=== PATIENT | male | born 1945 | race Caucasian/White ===

== ENCOUNTER → 2016-06-08 | Outpatient (CLI) | payer MEDICARE, BC ==
[~2016-06-08] MED LIST: AMOX TR-K CLV1 EAC4 PO; ASPIRIN325 MG PO; BENTYL10 MG PO; Ceftin PO; FLOMAX0.4 MG PO; GLUCOPHAGE1000 MG PO; GLUCOPHAGE500 MG PO; LEVAQUIN750 MG PO; LISINOPRIL2.5 MG PO; PAXIL CR37.5 MG PO; PEPCID20 MG PO; POTASSIUM CITR10 MEQ PO; RAPAFLO8 MG PO; ROBINUL1 MG PO; VESICARE5 MG PO; XARELTO15 MG PO; ZOCOR5 MG PO
== END | disposition home or self-care (01) ==
LOC: CDC 11:19
DX: R94.31 Abnormal electrocardiogram [ECG] [EKG] (principal); I48.91 Unspecified atrial fibrillation; N40.0 Benign prostatic hyperplasia without lower urinary tract symptoms; R33.9 Retention of urine, unspecified
CPT/HCPCS: 93000

== ENCOUNTER 2017-01-14 20:12 | Inpatient (IN) | payer OTHER, BC ==
[~2017-01-14] VITALS: Ht 193 cm; Wt 88.7 kg
[2017-01-14 21:02] LABS: CHLORIDE 101 mEq/L (99-109); HEMATOCRIT 37.1 % (38.0-50.0); MCH 17.4 PG (29.0-34.0); MCHC 27.5 G/DL (30.0-36.0); MCV 63.3 FL (86-99); NRBC (%) 0.2 /100 WBC (0-0); POTASSIUM 4.9 mEq/L (3.7-5.4); RBC DIS.WIDTH-CV 24.6 % (11.8-14.6); RBC DIS.WIDTH-SD 50.6 % (39-53); RED BLOOD COUNT 5.86 M/uL (4.00-5.50); SODIUM 131 mEq/L (136-147)
[2017-01-14 21:03] LABS: WHITE BLOOD COUNT 43.6 K/uL (4.1-10.2)
[2017-01-14 21:04] LABS: GLUCOSE 112 mg/dL (70-99)
[2017-01-14 21:05] LABS: ANION GAP 9 MEQ/L (2-14)
[2017-01-14 21:08] LABS: GFR ESTIMATE (CALCULATED) > 59 mL/min/
[2017-01-14 21:09] LABS: UREA NITROGEN (BUN) 23 mg/dL (9-23)
[2017-01-14 22:08] LABS: ATYPICAL LYMPHOCYTE 0.8 %; BAND NEUTROPHILS 3.4 % (0-8.0); BASOPHILS 2.6 %; EOSINOPHIL ABS CT 0; INSTRUMENT ABS NEUTROPHIL CT 38.2 K/uL; LYMPHOCYTES 1.7 % (15.0-45.0); NUCLEATED RBC'S 0.9; PLATELET COUNT 338 K/uL (156-360); SEG.NEUTROPHILS 83.8 % (46.0-76.0)
[2017-01-14] MEDS ORDERED: LISINOPRIL2.5 MG PO (23:28)
[2017-01-14] MEDS ORDERED: ROPINIROLE HCL0.5 MG PO (23:29)
[2017-01-14] MEDS ORDERED: AMARYL2 MG PO (23:29)
[2017-01-14] MEDS ORDERED: FUROSEMIDE40 MG PO (23:29)
[2017-01-14] MEDS ORDERED: BENTYL10 MG PO (23:29)
[2017-01-14] MEDS ORDERED: ALEVE220 MG PO (23:29)
[2017-01-15] VITALS (7 sets, daily range): BP systolic 95–137; BP diastolic 50–70
[2017-01-15 07:13] LABS: HEMATOCRIT 34.8 % (38.0-50.0); MCH 17.4 PG (29.0-34.0); MCV 64.3 FL (86-99); NRBC (%) 0.2 /100 WBC (0-0); PLATELET COUNT 296 K/uL (156-360); RBC DIS.WIDTH-CV 24.2 % (11.8-14.6); RBC DIS.WIDTH-SD 51.7 % (39-53); RED BLOOD COUNT 5.41 M/uL (4.00-5.50)
[2017-01-15 07:15] LABS: WHITE BLOOD COUNT 39.6 K/uL (4.1-10.2)
[2017-01-15 07:28] LABS: ALKALINE PHOSPHATASE 317 IU/L (3-129); ANION GAP 11 MEQ/L (2-14); CHLORIDE 101 MEQ/L (99-109); GFR ESTIMATE (CALCULATED) > 59 mL/min/; GLUCOSE 101 mg/dL (70-99); POTASSIUM 4.3 MEQ/L (3.7-5.4); SAMPLE HEMOLYSIS CHECK 0; SAMPLE ICTERIC CHECK 0; SAMPLE LIPEMIA CHECK 0; SODIUM 132 MEQ/L (136-147); UREA NITROGEN (BUN) 21 mg/dL (9-23)
[2017-01-15 08:18] LABS: ANISOCYTOSIS 3+; BURR CELLS 1+; HEMATOLOGY COMMENT 1 SN; HYPOCHROMASIA 2+; MICROCYTOSIS 2+; OVALOCYTES 2+; PLAT.SUFFICIENCY ADEQUATE; POIKILOCYTOSIS 3+; POLYCHROMASIA 1+; SCHISTOCYTES 2+; TEAR DROP CELLS 2+
[2017-01-15 12:27] LABS: POINT-OF-CARE METER ID UU13113725
[2017-01-15 17:10] LABS: POINT-OF-CARE METER ID UU13113725
[2017-01-15 21:21] LABS: POINT-OF-CARE METER ID UU13113725
[2017-01-16 04:33] VITALS: BP 110/65
[2017-01-16 05:52] LABS: POINT-OF-CARE METER ID UU13113725
[2017-01-16 06:27] LABS: ANION GAP 11 MEQ/L (2-14); CHLORIDE 104 MEQ/L (99-109); GFR ESTIMATE (CALCULATED) > 59 mL/min/; GLUCOSE 83 mg/dL (70-99); POTASSIUM 4.4 MEQ/L (3.7-5.4); SAMPLE HEMOLYSIS CHECK 0; SAMPLE ICTERIC CHECK 0; SAMPLE LIPEMIA CHECK 0; SODIUM 134 MEQ/L (136-147); UREA NITROGEN (BUN) 22 mg/dL (9-23)
[2017-01-16 06:40] LABS: BASOPHIL COUNT 0.4 K/uL (0-0.1); EOSINOPHIL (%) 0.1 % (0-5); EOSINOPHIL COUNT 0.1 K/uL (0-0.3); HEMATOCRIT 33.8 % (38.0-50.0); IMMATURE GRANULOCYTE COUNT 1.4 K/uL; INSTRUMENT ABS NEUTROPHIL CT 31.3 K/uL; LYMPHOCYTE COUNT 0.8 K/uL (1.0-2.8); MCH 18.5 PG (29.0-34.0); MCHC 28.4 G/DL (30.0-36.0); MCV 65.1 FL (86-99); MONOCYTE (%) 4.5 % (3-12); MONOCYTE COUNT 1.6 K/uL (0-0.8); NEUTROPHIL (%) 88.1 % (45-76); NEUTROPHIL COUNT 31.3 K/uL (1.8-6.4); NRBC (%) 0.1 /100 WBC (0-0); PLATELET COUNT 296 K/uL (156-360); RBC DIS.WIDTH-CV 24.7 % (11.8-14.6); RBC DIS.WIDTH-SD 53.2 % (39-53); RED BLOOD COUNT 5.19 M/uL (4.00-5.50)
[2017-01-16 06:49] LABS: WHITE BLOOD COUNT 35.6 K/uL (4.1-10.2)
[2017-01-16 08:12] VITALS: BP 114/73
[2017-01-16 09:36] LABS: BILIRUBIN NEGATIVE; BLOOD NEGATIVE; COLOR YELLOW ((YELLOW)); GLUCOSE (STRIP) NEGATIVE; KETONES 5; LEUKOCYTES NEGATIVE; NITRITE NEGATIVE; PROTEIN (STRIP) NEGATIVE; SPECIFIC GRAVITY 1.016 (1.000-1.030)
[2017-01-16 09:48] LABS: ADD MIUA? NO; UCUL ADDED? NO
[2017-01-16 11:11] LABS: POINT-OF-CARE METER ID UU13113725
[2017-01-16 11:53] VITALS: BP 110/75
[2017-01-16 16:24] LABS: POINT-OF-CARE METER ID UU13113725
[2017-01-16 17:09] VITALS: BP 118/75
[2017-01-16 20:56] LABS: POINT-OF-CARE METER ID UU13113725
[2017-01-16 23:13] VITALS: BP 109/59
[2017-01-17 06:20] LABS: POINT-OF-CARE METER ID UU13113725
[2017-01-17 06:55] LABS: BASOPHIL COUNT 0.5 K/uL (0-0.1); EOSINOPHIL (%) 0.6 % (0-5); EOSINOPHIL COUNT 0.2 K/uL (0-0.3); HEMATOCRIT 35.7 % (38.0-50.0); IMMATURE GRANULOCYTE (%) 3.6 % (0.0-0.7); IMMATURE GRANULOCYTE COUNT 1.6 K/uL; INSTRUMENT ABS NEUTROPHIL CT 37.5 K/uL; LYMPHOCYTE COUNT 0.9 K/uL (1.0-2.8); MCH 18.2 PG (29.0-34.0); MONOCYTE (%) 4.4 % (3-12); MONOCYTE COUNT 1.9 K/uL (0-0.8); NEUTROPHIL (%) 88.2 % (45-76); NEUTROPHIL COUNT 37.5 K/uL (1.8-6.4); NRBC (%) 0.1 /100 WBC (0-0); PLATELET COUNT 326 K/uL (156-360); RBC DIS.WIDTH-CV 24.9 % (11.8-14.6); RBC DIS.WIDTH-SD 53.3 % (39-53); RED BLOOD COUNT 5.49 M/uL (4.00-5.50)
[2017-01-17 06:56] LABS: WHITE BLOOD COUNT 42.5 K/uL (4.1-10.2)
[2017-01-17 07:02] LABS: ANION GAP 9 MEQ/L (2-14); CHLORIDE 102 MEQ/L (99-109); GFR ESTIMATE (CALCULATED) > 59 mL/min/; GLUCOSE 86 mg/dL (70-99); POTASSIUM 4.8 MEQ/L (3.7-5.4); SAMPLE HEMOLYSIS CHECK 0; SAMPLE ICTERIC CHECK 0; SAMPLE LIPEMIA CHECK 0; SODIUM 132 MEQ/L (136-147); UREA NITROGEN (BUN) 25 mg/dL (9-23)
[2017-01-17 08:04] VITALS: BP 104/56
[2017-01-17 11:20] LABS: POINT-OF-CARE METER ID UU13113725
[2017-01-17 12:25] VITALS: BP 104/62
[2017-01-17 14:43] LABS: POINT-OF-CARE METER ID UU13113675
[2017-01-17 16:22] LABS: POINT-OF-CARE METER ID UU13113725
[2017-01-17 20:34] VITALS: BP 110/70
[2017-01-17 21:41] LABS: POINT-OF-CARE METER ID UU13113725
[2017-01-18 00:04] VITALS: BP 100/65
[2017-01-18 06:46] LABS: BASOPHIL COUNT 0.5 K/uL (0-0.1); EOSINOPHIL (%) 1.3 % (0-5); EOSINOPHIL COUNT 0.5 K/uL (0-0.3); HEMATOCRIT 36.6 % (38.0-50.0); IMMATURE GRANULOCYTE (%) 3.7 % (0.0-0.7); IMMATURE GRANULOCYTE COUNT 1.3 K/uL; MCH 18.1 PG (29.0-34.0); MCHC 27.9 G/DL (30.0-36.0); MCV 65.1 FL (86-99); MONOCYTE (%) 3.9 % (3-12); MONOCYTE COUNT 1.4 K/uL (0-0.8); NEUTROPHIL (%) 86.8 % (45-76); NRBC (%) 0.1 /100 WBC (0-0); PLATELET COUNT 324 K/uL (156-360); RBC DIS.WIDTH-CV 25.2 % (11.8-14.6); RBC DIS.WIDTH-SD 53.6 % (39-53); RED BLOOD COUNT 5.62 M/uL (4.00-5.50); WHITE BLOOD COUNT 35.7 K/uL (4.1-10.2)
[2017-01-18 06:47] VITALS: BP 110/65
[2017-01-18 06:56] LABS: ANION GAP 12 MEQ/L (2-14); C-REACTIVE PROTEIN 148.1 MG/L (0-10); CHLORIDE 102 MEQ/L (99-109); GFR ESTIMATE (CALCULATED) > 59 mL/min/; GLUCOSE 79 mg/dL (70-99); POTASSIUM 5.3 MEQ/L (3.7-5.4); SAMPLE HEMOLYSIS CHECK 0; SAMPLE ICTERIC CHECK 0; SAMPLE LIPEMIA CHECK 0; SODIUM 133 MEQ/L (136-147); UREA NITROGEN (BUN) 31 mg/dL (9-23)
[2017-01-18 07:19] LABS: ERTH.SED.RATE 48 MM/HR (0-20)
[2017-01-18 16:21] VITALS: BP 100/67
[2017-01-18 19:55] VITALS: BP 92/58
[2017-01-18 21:07] LABS: POINT-OF-CARE USER ID 610211320
[2017-01-18 21:54] VITALS: BP 99/61
[2017-01-19] VITALS (7 sets, daily range): BP systolic 90–111; BP diastolic 58–71
[2017-01-19 05:41] LABS: POINT-OF-CARE METER ID UU13113725; POINT-OF-CARE USER ID 610211320
[2017-01-19 07:56] LABS: ANION GAP 8 MEQ/L (2-14); CHLORIDE 104 MEQ/L (99-109); GFR ESTIMATE (CALCULATED) > 59 mL/min/; POTASSIUM 5.1 MEQ/L (3.7-5.4); SAMPLE HEMOLYSIS CHECK 0; SAMPLE ICTERIC CHECK 0; SAMPLE LIPEMIA CHECK 0; SODIUM 135 MEQ/L (136-147); UREA NITROGEN (BUN) 28 mg/dL (9-23)
[2017-01-19 07:58] LABS: GLUCOSE 108 mg/dL (70-99)
[2017-01-19 15:38] LABS: POINT-OF-CARE METER ID UU13113725
[2017-01-19 21:55] LABS: POINT-OF-CARE METER ID UU13113725
[2017-01-20] VITALS (9 sets, daily range): BP systolic 84–105; BP diastolic 51–69
[2017-01-20 05:53] LABS: POINT-OF-CARE METER ID UU13113725
[2017-01-20 06:20] LABS: MCH 17.5 PG (29.0-34.0); MCHC 26.8 G/DL (30.0-36.0); MCV 65.1 FL (86-99); NRBC (%) 0.2 /100 WBC (0-0); PLATELET COUNT 333 K/uL (156-360); RBC DIS.WIDTH-CV 25.3 % (11.8-14.6); RBC DIS.WIDTH-SD 53.9 % (39-53); RED BLOOD COUNT 5.84 M/uL (4.00-5.50)
[2017-01-20 06:21] LABS: WHITE BLOOD COUNT 34.3 K/uL (4.1-10.2)
[2017-01-20 06:36] LABS: ANION GAP 8 MEQ/L (2-14); CHLORIDE 104 MEQ/L (99-109); GFR ESTIMATE (CALCULATED) > 59 mL/min/; GLUCOSE 97 mg/dL (70-99); POTASSIUM 5.4 MEQ/L (3.7-5.4); SAMPLE HEMOLYSIS CHECK 0; SAMPLE ICTERIC CHECK 0; SAMPLE LIPEMIA CHECK 0; SODIUM 135 MEQ/L (136-147); UREA NITROGEN (BUN) 26 mg/dL (9-23)
[2017-01-20 07:50] LABS: ABS NEUTROPHIL COUNT 31.3; ANISOCYTOSIS 2+; ATYPICAL LYMPHOCYTE 1.3 %; BAND NEUTROPHILS 8.8 % (0-8.0); BASOPHILS 1.8 %; BURR CELLS 2+; EOSINOPHIL ABS CT 0.1; EOSINOPHILS 0.4 % (0-5.0); INSTRUMENT ABS NEUTROPHIL CT 29.2 K/uL; LYMPHOCYTES 2.2 % (15.0-45.0); METAMYELOCYTES 0.4 %; MICROCYTOSIS 3+; MYELOCYTES 1.3 %; OVALOCYTES 2+; PLAT.SUFFICIENCY ADEQUATE; POIKILOCYTOSIS 3+; POLYCHROMASIA 1+; SEG.NEUTROPHILS 82.5 % (46.0-76.0); TEAR DROP CELLS 1+
[2017-01-20 21:24] LABS: POINT-OF-CARE METER ID UU13113725
[2017-01-21] VITALS (7 sets, daily range): BP systolic 86–114; BP diastolic 48–68
[2017-01-21 06:12] LABS: POINT-OF-CARE METER ID UU13113725
[2017-01-21 06:54] LABS: HEMATOCRIT 36.7 % (38.0-50.0); MCH 17.2 PG (29.0-34.0); MCHC 26.4 G/DL (30.0-36.0); MCV 65.1 FL (86-99); NRBC (%) 0.2 /100 WBC (0-0); PLATELET COUNT 332 K/uL (156-360); RBC DIS.WIDTH-CV 25.2 % (11.8-14.6); RBC DIS.WIDTH-SD 55.2 % (39-53); RED BLOOD COUNT 5.64 M/uL (4.00-5.50); WHITE BLOOD COUNT 29.6 K/uL (4.1-10.2)
[2017-01-21 06:59] LABS: ANION GAP 7 MEQ/L (2-14); CHLORIDE 103 MEQ/L (99-109); GFR ESTIMATE (CALCULATED) > 59 mL/min/; GLUCOSE 95 mg/dL (70-99); MAGNESIUM 1.9 mg/dl (1.3-2.7); POTASSIUM 5.1 MEQ/L (3.7-5.4); SAMPLE HEMOLYSIS CHECK 0; SAMPLE ICTERIC CHECK 0; SAMPLE LIPEMIA CHECK 0; SODIUM 135 MEQ/L (136-147); UREA NITROGEN (BUN) 22 mg/dL (9-23)
[2017-01-21 11:33] LABS: POINT-OF-CARE METER ID UU13113725
[2017-01-21 15:53] LABS: POINT-OF-CARE METER ID UU13113725
[2017-01-22 03:05] VITALS: BP 106/61
[2017-01-22 08:09] VITALS: BP 99/59
[2017-01-22 11:35] VITALS: BP 100/60
[2017-01-22 15:48] LABS: POINT-OF-CARE METER ID UU13113725
[2017-01-22 16:07] LABS: POINT-OF-CARE METER ID UU13113725
[2017-01-22 16:23] VITALS: BP 100/60
[2017-01-22 19:10] VITALS: BP 110/65
[2017-01-22 21:52] LABS: POINT-OF-CARE METER ID UU13113725
[2017-01-22 23:35] VITALS: BP 101/59
[2017-01-23 03:11] VITALS: BP 101/72
[2017-01-23 06:10] LABS: POINT-OF-CARE METER ID UU13113725
[2017-01-23 08:18] VITALS: BP 98/59
[2017-01-23 09:11] LABS: HEMATOCRIT 38.8 % (38.0-50.0); MCH 18.1 PG (29.0-34.0); MCHC 27.1 G/DL (30.0-36.0); NRBC (%) 0.3 /100 WBC (0-0); PLATELET COUNT 400 K/uL (156-360); RBC DIS.WIDTH-CV 25.8 % (11.8-14.6); RBC DIS.WIDTH-SD 57.8 % (39-53); RED BLOOD COUNT 5.79 M/uL (4.00-5.50); WHITE BLOOD COUNT 29.5 K/uL (4.1-10.2)
[2017-01-23 09:49] LABS: ANION GAP 7 MEQ/L (2-14); CHLORIDE 103 MEQ/L (99-109); GFR ESTIMATE (CALCULATED) > 59 mL/min/; GLUCOSE 158 mg/dL (70-99); POTASSIUM 5.2 MEQ/L (3.7-5.4); SAMPLE HEMOLYSIS CHECK 0; SAMPLE ICTERIC CHECK 0; SAMPLE LIPEMIA CHECK 0; SODIUM 137 MEQ/L (136-147); UREA NITROGEN (BUN) 19 mg/dL (9-23)
[2017-01-23 11:38] LABS: POINT-OF-CARE METER ID UU13113725
[2017-01-23 12:01] VITALS: BP 99/60
[2017-01-23 16:00] VITALS: BP 103/68
[2017-01-23 16:46] LABS: POINT-OF-CARE METER ID UU13113725
[2017-01-23] MEDS ORDERED: LOPRESSOR25 MG PO (16:49)
== END 2017-01-23 22:58 | DRG 623 ==
LOC: EME 20:12 → EDOF 23:50 → 5EAST 23:50 → ENRESERV 23:52 → EDOF 01-15 00:38 → ENRESERV 01-15 00:41 → 5EAST 01-15 01:15
PROVIDERS: Internal Medicine; Student in an Organized Health Care Education/Training Program
DX: E11.69 Type 2 diabetes mellitus with other specified complication (principal); M86.171 Other acute osteomyelitis, right ankle and foot; E11.628 Type 2 diabetes mellitus with other skin complications; L03.031 Cellulitis of right toe; E11.42 Type 2 diabetes mellitus with diabetic polyneuropathy; E11.621 Type 2 diabetes mellitus with foot ulcer; L97.519 Non-pressure chronic ulcer of other part of right foot with unspecified severity; I48.0 Paroxysmal atrial fibrillation; I10 Essential (primary) hypertension; D46.9 Myelodysplastic syndrome, unspecified; D75.81 Myelofibrosis; E87.1 Hypo-osmolality and hyponatremia; F32.9 Major depressive disorder, single episode, unspecified; G25.81 Restless legs syndrome; D45 Polycythemia vera; K21.9 Gastro-esophageal reflux disease without esophagitis; L02.611 Cutaneous abscess of right foot; M21.961 Unspecified acquired deformity of right lower leg; G47.30 Sleep apnea, unspecified; I87.8 Other specified disorders of veins; L97.522 Non-pressure chronic ulcer of other part of left foot with fat layer exposed; B95.61 Methicillin susceptible Staphylococcus aureus infection as the cause of diseases classified elsewhere; Z91.19 Patient's noncompliance with other medical treatment and regimen; Z87.891 Personal history of nicotine dependence; L03.115 Cellulitis of right lower limb; M00.9 Pyogenic arthritis, unspecified
CPT/HCPCS: 73630; 73720; 80048; 80053; 80202; 81003; 82728; 82948; 83605; 83735; 85025; 85027; 85651; 86140; 87040; 87070; 87075; 87077; 87147; 87186; 87205; 87801; 88304; 88311; 99281; 99285; C1752; C1894; J0690; J1644; J1815; J2250; J2270; J2405; J2543; J3010; J3370; J7030; J7050; J7120; S0020; S0028

== ENCOUNTER 2017-04-04 16:24 | Emergency (ER) | payer OTHER, BC ==
[~2017-04-04] VITALS: Ht 190.5 cm; Wt 87.7 kg
[~2017-04-04 16:24] MED LIST changes: +ALEVE220 MG PO; +AMARYL2 MG PO; +ANCEF,KEFZ1 GM/50 ML IV; +BACTRIM,SEPT1 TABLET PO; +CORTEF20 M1 PO; +FLAGYL500 MG PO; +FUROSEMIDE40 MG PO; +LASIX40 MG PO; +LOPRESSOR25 MG PO; +NOVOLOG PE100 UNITS/ SC; +ROPINIROLE HCL0.5 MG PO
[2017-04-04 18:17] LABS: POINT-OF-CARE METER ID UU13113747
[2017-04-04 21:11] VITALS: BP 102/61
== END 2017-04-04 21:13 | disposition short-term general hospital (02) ==
LOC: EME 16:24
PROVIDERS: Emergency Medicine
PROC: 0JPT33Z Removal of Infusion Device from Trunk Subcutaneous Tissue and Fascia, Percutaneous Approach (ICD-10-PCS; principal; 2017-04-04)
DX: Z45.2 Encounter for adjustment and management of vascular access device (principal); Z79.2 Long term (current) use of antibiotics; Z79.01 Long term (current) use of anticoagulants; I51.7 Cardiomegaly; Z87.891 Personal history of nicotine dependence
CPT/HCPCS: 71010; 82948; 99281; 99284

== ENCOUNTER 2017-04-05 12:48 | Emergency (ER) | payer OTHER, BC ==
[~2017-04-05] VITALS: Ht 190.5 cm; Wt 80.0 kg
[2017-04-05 13:43] LABS: HEMATOCRIT 38.1 % (38.0-50.0); MCH 20.6 PG (29.0-34.0); MCHC 27.3 G/DL (30.0-36.0); MCV 75.4 FL (86-99); MEAN PLAT.VOLUME 10.7 uM^3 (9.0-12.4); PLATELET COUNT 407 K/uL (156-360); RBC DIS.WIDTH-CV 19.7 % (11.8-14.6); RBC DIS.WIDTH-SD 52.2 % (39-53); RED BLOOD COUNT 5.05 M/uL (4.00-5.50)
[2017-04-05 13:45] LABS: WHITE BLOOD COUNT 34.5 K/uL (4.1-10.2)
[2017-04-05 13:48] LABS: INTER. NORMALIZED RATIO 1.5; PROTHROMBIN TIME 17.2 SEC (10.2-12.9)
[2017-04-05 13:51] LABS: PTT 35.9 SEC (25-37)
[2017-04-05 13:53] LABS: CHLORIDE 102 mEq/L (99-109); POTASSIUM 4.4 mEq/L (3.7-5.4); SODIUM 137 mEq/L (136-147)
[2017-04-05 13:55] LABS: GLUCOSE 180 mg/dL (70-99)
[2017-04-05 13:56] LABS: ANION GAP 8 MEQ/L (2-14)
[2017-04-05 13:59] LABS: GFR ESTIMATE (CALCULATED) > 59 mL/min/
[2017-04-05 14:00] LABS: UREA NITROGEN (BUN) 23 mg/dL (9-23)
[2017-04-05 14:03] LABS: TROP-I INTERPRETATION NEGATIVE; TROPONIN-I < 0.01 ng/mL (0.0-0.30)
[2017-04-05 14:51] VITALS: BP 97/68
== END 2017-04-05 15:15 | disposition home or self-care (01) ==
LOC: EME → EDBD 12:48 → EME 12:48
PROVIDERS: Emergency Medicine
DX: S00.03XA Contusion of scalp, initial encounter (principal); S00.33XA Contusion of nose, initial encounter; W01.0XXA Fall on same level from slipping, tripping and stumbling without subsequent striking against object, initial encounter; Y92.008 Other place in unspecified non-institutional (private) residence as the place of occurrence of the external cause; T45.515A Adverse effect of anticoagulants, initial encounter; S39.92XA Unspecified injury of lower back, initial encounter; D72.829 Elevated white blood cell count, unspecified; I48.91 Unspecified atrial fibrillation; E11.9 Type 2 diabetes mellitus without complications; D75.81 Myelofibrosis; D45 Polycythemia vera; K21.9 Gastro-esophageal reflux disease without esophagitis; G25.81 Restless legs syndrome; G47.30 Sleep apnea, unspecified; F41.9 Anxiety disorder, unspecified; F32.9 Major depressive disorder, single episode, unspecified; Z87.891 Personal history of nicotine dependence
CPT/HCPCS: 70450; 71010; 72125; 80048; 84484; 85027; 85610; 85730; 93005; 99281; 99285

== ENCOUNTER → 2017-09-21 | Outpatient (CLI) | payer MEDICARE, BC | END | disposition home or self-care (01) | LOC: CDC 13:05 | DX: Z01.810 Encounter for preprocedural cardiovascular examination (principal); I48.91 Unspecified atrial fibrillation | CPT/HCPCS: 93000 ==

== ENCOUNTER 2017-11-16 17:13 | Inpatient (IN) | payer OTHER, BC ==
[~2017-11-16] VITALS: Ht 190.5 cm; Wt 86.4 kg
[2017-11-16 18:36] LABS: HEMATOCRIT 38.5 % (38.0-50.0); HEMOGLOBIN 11.2 G/DL (12.5-16.6); MCH 19.7 PG (29.0-34.0); MCHC 29.1 G/DL (30.0-36.0); MCV 67.7 FL (86-99); NRBC (%) 0.1 /100 WBC (0-0); RBC DIS.WIDTH-CV 22.5 % (11.8-14.6); RBC DIS.WIDTH-SD 48.6 % (39-53); RED BLOOD COUNT 5.69 M/uL (4.00-5.50)
[2017-11-16 18:53] LABS: WHITE BLOOD COUNT 43.4 K/uL (4.1-10.2)
[2017-11-16 18:54] LABS: ALBUMIN 3.7 g/dL (3.2-4.8); CHLORIDE 99 mEq/L (99-109); POTASSIUM 4.6 mEq/L (3.7-5.4); SODIUM 134 mEq/L (136-147)
[2017-11-16 18:56] LABS: GLUCOSE 135 mg/dL (70-99)
[2017-11-16 18:57] LABS: TOTAL PROTEIN 6.5 g/dL (6.4-8.3)
[2017-11-16 18:58] LABS: TOTAL BILIRUBIN 1.6 mg/dL (0.0-1.0)
[2017-11-16 19:00] LABS: ALKALINE PHOSPHATASE 357 IU/L (3-129); CREATININE 0.7 mg/dL (0.6-1.3); GFR ESTIMATE (CALCULATED) > 59 mL/min/ (58.99-99999)
[2017-11-16 19:01] LABS: UREA NITROGEN (BUN) 33 mg/dL (9-23)
[2017-11-16 19:02] LABS: AST (GOT) 37 IU/L (2-34)
[2017-11-16 19:03] LABS: ALT (GPT) 21 IU/L (3-49)
[2017-11-16 19:09] LABS: TROP-I INTERPRETATION NEGATIVE; TROPONIN-I < 0.01 ng/mL (0.0-0.30)
[2017-11-16 20:16] LABS: PLATELET COUNT 275 K/uL (156-360)
[2017-11-16] MEDS ORDERED: HUMULIN N100 UNIT/2 SC (21:16)
[2017-11-16] MEDS ORDERED: FUROSEMIDE40 MG PO (21:16)
[2017-11-16 21:57] LABS: HEMATOCRIT 37.1 % (38.0-50.0); HEMOGLOBIN 10.9 G/DL (12.5-16.6); MCH 19.9 PG (29.0-34.0); MCHC 29.4 G/DL (30.0-36.0); MCV 67.6 FL (86-99); NRBC (%) 0.1 /100 WBC (0-0); PLATELET COUNT 280 K/uL (156-360); RBC DIS.WIDTH-CV 21.9 % (11.8-14.6); RBC DIS.WIDTH-SD 49.1 % (39-53); RED BLOOD COUNT 5.49 M/uL (4.00-5.50)
[2017-11-16 22:20] LABS: WHITE BLOOD COUNT 42.7 K/uL (4.1-10.2)
[2017-11-16 23:36] LABS: DIRECT BILIRUBIN 0.9 mg/dL (0.0-0.3)
[2017-11-17 00:32] VITALS: BP 93/54
[2017-11-17 01:14] LABS: HEMATOCRIT 35.9 % (38.0-50.0); HEMOGLOBIN 10.5 G/DL (12.5-16.6); MCV 67.4 FL (86-99)
[2017-11-17 01:34] LABS: TROP-I INTERPRETATION NEGATIVE; TROPONIN-I < 0.01 ng/mL (0.0-0.30)
[2017-11-17 04:26] VITALS: BP 100/59
[2017-11-17 08:05] LABS: HEMATOCRIT 39.7 % (38.0-50.0); HEMOGLOBIN 11.2 G/DL (12.5-16.6); MCHC 28.2 G/DL (30.0-36.0); MCV 67.5 FL (86-99); NRBC (%) 0.2 /100 WBC (0-0); PLATELET COUNT 274 K/uL (156-360); RBC DIS.WIDTH-CV 21.6 % (11.8-14.6); RBC DIS.WIDTH-SD 48.3 % (39-53); RED BLOOD COUNT 5.88 M/uL (4.00-5.50); WHITE BLOOD COUNT 36.6 K/uL (4.1-10.2)
[2017-11-17 08:10] VITALS: BP 82/53
[2017-11-17 08:29] LABS: CHLORIDE 102 MEQ/L (99-109); CREATININE 0.6 MG/DL (0.6-1.3); GFR ESTIMATE (CALCULATED) > 59 mL/min/ (58.99-99999); POTASSIUM 3.9 MEQ/L (3.7-5.4); SODIUM 136 MEQ/L (136-147); UREA NITROGEN (BUN) 28 mg/dL (9-23)
[2017-11-17 08:30] LABS: GLUCOSE 90 mg/dL (70-99)
[2017-11-17 08:50] LABS: TROP-I INTERPRETATION NEGATIVE; TROPONIN-I < 0.01 ng/mL (0.0-0.30)
[2017-11-17 11:36] VITALS: BP 103/62
[2017-11-17 12:28] LABS: HEMATOCRIT 40.7 % (38.0-50.0); HEMOGLOBIN 11.5 G/DL (12.5-16.6); MCV 68.1 FL (86-99)
[2017-11-17 16:14] VITALS: BP 107/74
[2017-11-17 18:47] LABS: HEMATOCRIT 39.5 % (38.0-50.0); HEMOGLOBIN 11.2 G/DL (12.5-16.6); MCV 68.3 FL (86-99)
[2017-11-17 20:27] VITALS: BP 113/68
[2017-11-18 00:05] VITALS: BP 102/69
[2017-11-18 04:19] VITALS: BP 103/70
[2017-11-18 08:19] VITALS: BP 111/68
[2017-11-18 10:58] LABS: HEMATOCRIT 39.8 % (38.0-50.0); HEMOGLOBIN 11.3 G/DL (12.5-16.6); MCH 19.4 PG (29.0-34.0); MCHC 28.4 G/DL (30.0-36.0); MCV 68.3 FL (86-99); NRBC (%) 0.1 /100 WBC (0-0); PLATELET COUNT 282 K/uL (156-360); RBC DIS.WIDTH-CV 22.5 % (11.8-14.6); RED BLOOD COUNT 5.83 M/uL (4.00-5.50)
[2017-11-18 11:00] LABS: WHITE BLOOD COUNT 31.1 K/uL (4.1-10.2)
[2017-11-18 11:12] LABS: CHLORIDE 99 MEQ/L (99-109); CREATININE 0.6 MG/DL (0.6-1.3); GFR ESTIMATE (CALCULATED) > 59 mL/min/ (58.99-99999); POTASSIUM 3.7 MEQ/L (3.7-5.4); SODIUM 137 MEQ/L (136-147); UREA NITROGEN (BUN) 24 mg/dL (9-23)
[2017-11-18 11:14] LABS: GLUCOSE 207 mg/dL (70-99)
[2017-11-18 11:23] LABS: ABS NEUTROPHIL COUNT 28.3; ANISOCYTOSIS 1+; ATYPICAL LYMPHOCYTE 0.9 %; BAND NEUTROPHILS 6.5 % (0-8.0); BASOPHILS 0.8 %; BURR CELLS 1+; EOSINOPHIL ABS CT 0.4; EOSINOPHILS 1.3 % (0-5.0); LYMPHOCYTES 0.9 % (15.0-45.0); METAMYELOCYTES 2.6 %; MICROCYTOSIS 1+; MONOCYTES 2.1 % (0-9.0); MYELOCYTES 0.4 %; OVALOCYTES 3+; PLAT.SUFFICIENCY ADEQUATE; POIKILOCYTOSIS 3+; POLYCHROMASIA 1+; SCHISTOCYTES 1+; SEG.NEUTROPHILS 84.5 % (46.0-76.0); TEAR DROP CELLS 1+
[2017-11-18 11:36] VITALS: BP 98/63
[2017-11-18 15:20] VITALS: BP 101/65
[2017-11-18 20:40] VITALS: BP 105/71
[2017-11-19] VITALS (7 sets, daily range): BP systolic 102–113; BP diastolic 59–78
[2017-11-20 04:02] VITALS: BP 106/67
[2017-11-20 08:09] VITALS: BP 101/59
[2017-11-20 09:21] LABS: HEMATOCRIT 41.6 % (38.0-50.0); HEMOGLOBIN 11.6 G/DL (12.5-16.6); MCH 19.1 PG (29.0-34.0); MCHC 27.9 G/DL (30.0-36.0); MCV 68.6 FL (86-99); NRBC (%) 0.1 /100 WBC (0-0); PLATELET COUNT 283 K/uL (156-360); RBC DIS.WIDTH-SD 48.8 % (39-53); RED BLOOD COUNT 6.06 M/uL (4.00-5.50); WHITE BLOOD COUNT 33.8 K/uL (4.1-10.2)
[2017-11-20 09:42] LABS: CHLORIDE 100 MEQ/L (99-109); CREATININE 0.5 MG/DL (0.6-1.3); GFR ESTIMATE (CALCULATED) > 59 mL/min/ (58.99-99999); POTASSIUM 4.3 MEQ/L (3.7-5.4); SODIUM 138 MEQ/L (136-147); UREA NITROGEN (BUN) 20 mg/dL (9-23)
[2017-11-20 09:48] LABS: GLUCOSE 69 mg/dL (70-99)
[2017-11-20 11:35] VITALS: BP 117/70
[2017-11-20] MEDS ORDERED: ANUCORT-HC25 MG PR (12:52)
[2017-11-20] MEDS ORDERED: NOVOLOG 10100 UNITS/ SC (12:53)
[2017-11-20] MEDS ORDERED: CEPHALEXIN500 MG PO (12:54)
[2017-11-20] MEDS ORDERED: FUROSEMIDE40 MG PO (12:54)
[2017-11-20] MEDS ORDERED: MIRALAX17 GM PO (15:51)
== END 2017-11-20 14:51 | DRG 292 ==
LOC: EME 17:13 → EDOF 22:26 → 4EAST 22:26 → ENRESERV 22:29 → CANRESERV 22:29 → ENRESERV 22:31 → 4EAST 11-17 00:17 → ENPENDDIS 11-20 → 4EAST 11-20 14:51
PROVIDERS: Family Medicine; Hospitalist; Internal Medicine; Physician Assistant Medical
DX: I50.23 Acute on chronic systolic (congestive) heart failure (principal); L03.115 Cellulitis of right lower limb; L03.116 Cellulitis of left lower limb; D75.81 Myelofibrosis; E11.621 Type 2 diabetes mellitus with foot ulcer; I27.20 Pulmonary hypertension, unspecified; L97.509 Non-pressure chronic ulcer of other part of unspecified foot with unspecified severity; I95.89 Other hypotension; R45.851 Suicidal ideations; K64.8 Other hemorrhoids; D45 Polycythemia vera; I48.0 Paroxysmal atrial fibrillation; F32.9 Major depressive disorder, single episode, unspecified; F41.9 Anxiety disorder, unspecified; Z79.01 Long term (current) use of anticoagulants; G25.81 Restless legs syndrome; G47.30 Sleep apnea, unspecified; Z87.891 Personal history of nicotine dependence; Z86.73 Personal history of transient ischemic attack (TIA), and cerebral infarction without residual deficits; I42.0 Dilated cardiomyopathy; E66.9 Obesity, unspecified; Z68.26 Body mass index [BMI] 26.0-26.9, adult; I48.2 Chronic atrial fibrillation; K21.9 Gastro-esophageal reflux disease without esophagitis
CPT/HCPCS: 71045; 74176; 80048; 80053; 80076; 80202; 81003; 82248; 82948; 83605; 83880; 84484; 85014; 85018; 85025; 85027; 86850; 86900; 86901; 87040; 93005; 93971; 97530 GO; 99281; 99285; J0690; J1815; J1940; J2543; J3370; J7050

== ENCOUNTER 2017-11-20 13:08 | Inpatient (IN) | payer OTHER, BC ==
[~2017-11-20] VITALS: Ht 190.5 cm; Wt 85.2 kg
[~2017-11-20 13:08] MED LIST changes: +ANUCORT-HC25 MG PR; +CEPHALEXIN500 MG PO; +HUMULIN N100 UNIT/2 SC; +NOVOLOG 10100 UNITS/ SC
[2017-11-20 14:30] VITALS: BP 146/81
[2017-11-20] MEDS ORDERED: MIRALAX17 GM PO (15:51)
[2017-11-20 16:08] VITALS: BP 120/74
[2017-11-21] VITALS: BP 102/60
[2017-11-21 05:30] VITALS: BP 106/64
[2017-11-21 16:10] VITALS: BP 108/71
[2017-11-22 06:39] VITALS: BP 94/52
[2017-11-22 15:41] VITALS: BP 98/58
[2017-11-23 06:27] LABS: ALBUMIN 3.6 G/DL (3.2-4.8); ALKALINE PHOSPHATASE 338 IU/L (3-129); ALT (GPT) 9 IU/L (3-49); AST (GOT) 20 IU/L (2-34); CHLORIDE 102 MEQ/L (99-109); CREATININE 0.6 MG/DL (0.6-1.3); GFR ESTIMATE (CALCULATED) > 59 mL/min/ (58.99-99999); GLUCOSE 76 mg/dL (70-99); POTASSIUM 4.5 MEQ/L (3.7-5.4); SODIUM 139 MEQ/L (136-147); TOTAL BILIRUBIN 1.4 MG/DL (0.0-1.0); TOTAL PROTEIN 6.2 G/DL (6.4-8.3); UREA NITROGEN (BUN) 22 mg/dL (9-23)
[2017-11-23 06:33] LABS: BASOPHIL COUNT 0.7 K/uL (0-0.1); EOSINOPHIL (%) 1.2 % (0-5); EOSINOPHIL COUNT 0.4 K/uL (0-0.3); HEMATOCRIT 42.1 % (38.0-50.0); HEMOGLOBIN 11.8 G/DL (12.5-16.6); IMMATURE GRANULOCYTE (%) 4.3 % (0.0-0.7); LYMPHOCYTE (%) 3.3 % (15-42); LYMPHOCYTE COUNT 1.1 K/uL (1.0-2.8); MCH 19.3 PG (29.0-34.0); MCV 68.8 FL (86-99); MONOCYTE COUNT 0.6 K/uL (0-0.8); NEUTROPHIL (%) 87.2 % (45-76); NEUTROPHIL COUNT 28.1 K/uL (1.8-6.4); NRBC (%) 0.1 /100 WBC (0-0); PLATELET COUNT 286 K/uL (156-360); RBC DIS.WIDTH-CV 22.9 % (11.8-14.6); RBC DIS.WIDTH-SD 50.1 % (39-53); RED BLOOD COUNT 6.12 M/uL (4.00-5.50); WHITE BLOOD COUNT 32.3 K/uL (4.1-10.2)
[2017-11-23 07:02] VITALS: BP 99/64
[2017-11-23 15:26] VITALS: BP 101/66
[2017-11-24 05:31] VITALS: BP 90/53
[2017-11-24 15:14] VITALS: BP 100/61
[2017-11-25 06:04] VITALS: BP 104/64
[2017-11-25 15:49] VITALS: BP 92/59
[2017-11-26 05:28] VITALS: BP 101/67
[2017-11-26 07:22] LABS: HEMATOCRIT 43.7 % (38.0-50.0); HEMOGLOBIN 12.1 G/DL (12.5-16.6); MCH 19.1 PG (29.0-34.0); MCHC 27.7 G/DL (30.0-36.0); MCV 69.1 FL (86-99); NRBC (%) 0.1 /100 WBC (0-0); PLATELET COUNT 285 K/uL (156-360); RBC DIS.WIDTH-CV 22.3 % (11.8-14.6); RBC DIS.WIDTH-SD 50.4 % (39-53); RED BLOOD COUNT 6.32 M/uL (4.00-5.50)
[2017-11-26 07:23] LABS: WHITE BLOOD COUNT 30.4 K/uL (4.1-10.2)
[2017-11-26 07:34] LABS: CHLORIDE 104 MEQ/L (99-109); CREATININE 0.6 MG/DL (0.6-1.3); GFR ESTIMATE (CALCULATED) > 59 mL/min/ (58.99-99999); GLUCOSE 75 mg/dL (70-99); POTASSIUM 4.3 MEQ/L (3.7-5.4); SODIUM 139 MEQ/L (136-147); UREA NITROGEN (BUN) 21 mg/dL (9-23)
[2017-11-26 07:49] LABS: ABS NEUTROPHIL COUNT 26.6; ANISOCYTOSIS 2+; BAND NEUTROPHILS 3.9 % (0-8.0); BASOPHILS 4.3 %; EOSINOPHIL ABS CT 0.4; EOSINOPHILS 1.3 % (0-5.0); LYMPHOCYTES 5.6 % (15.0-45.0); MICROCYTOSIS 2+; MONOCYTES 0.9 % (0-9.0); MYELOCYTES 0.4 %; OVALOCYTES 1+; SEG.NEUTROPHILS 83.6 % (46.0-76.0); TEAR DROP CELLS 1+
[2017-11-26 15:44] VITALS: BP 92/57
[2017-11-27 05:30] VITALS: BP 111/61
[2017-11-27 15:41] VITALS: BP 111/58
[2017-11-28 04:51] VITALS: BP 96/58
[2017-11-28 15:13] VITALS: BP 108/59
[2017-11-29 04:19] VITALS: BP 121/71
[2017-11-29 06:31] LABS: CHLORIDE 100 MEQ/L (99-109); CREATININE 0.8 MG/DL (0.6-1.3); GFR ESTIMATE (CALCULATED) > 59 mL/min/ (58.99-99999); GLUCOSE 75 mg/dL (70-99); POTASSIUM 4.9 MEQ/L (3.7-5.4); SODIUM 137 MEQ/L (136-147); UREA NITROGEN (BUN) 26 mg/dL (9-23)
[2017-11-29 06:52] LABS: ABS NEUTROPHIL COUNT 28.3; ANISOCYTOSIS 1+; ATYPICAL LYMPHOCYTE 0.5 %; BAND NEUTROPHILS 3.9 % (0-8.0); BASOPHILS 3.9 %; EOSINOPHIL ABS CT 0.3; EOSINOPHILS 0.9 % (0-5.0); HEMATOCRIT 43.6 % (38.0-50.0); HEMOGLOBIN 12.2 G/DL (12.5-16.6); HYPOCHROMASIA 1+; MCH 19.5 PG (29.0-34.0); MCV 69.6 FL (86-99); METAMYELOCYTES 0.4 %; MICROCYTOSIS 1+; MONOCYTES 1.7 % (0-9.0); MYELOCYTES 0.4 %; NRBC (%) 0.1 /100 WBC (0-0); PLAT.SUFFICIENCY ADEQUATE; PLATELET COUNT 294 K/uL (156-360); POIKILOCYTOSIS 3+; RBC DIS.WIDTH-CV 22.2 % (11.8-14.6); RBC DIS.WIDTH-SD 50.7 % (39-53); RED BLOOD COUNT 6.26 M/uL (4.00-5.50); SEG.NEUTROPHILS 85.3 % (46.0-76.0)
[2017-11-29 06:56] LABS: WHITE BLOOD COUNT 31.7 K/uL (4.1-10.2)
[2017-11-29 15:04] VITALS: BP 109/60
[2017-11-30 05:23] VITALS: BP 94/56
[2017-11-30 15:26] VITALS: BP 103/58
[2017-12-01 04:05] VITALS: BP 103/61
[2017-12-01] MEDS ORDERED: FUROSEMIDE20 MG PO (10:07)
== END 2017-12-01 13:15 | DRG 945 ==
LOC: 3WEST 13:08 → ENPENDDIS 12-01 → 3WEST 12-01 13:15
PROVIDERS: Family Medicine Sports Medicine; Psychiatry & Neurology Neurology
PROC: F07M0ZZ Range of Motion and Joint Mobility Treatment of Musculoskeletal System - Whole Body (ICD-10-PCS; principal; 2017-11-20)
DX: R53.1 Weakness (principal); R26.2 Difficulty in walking, not elsewhere classified; I50.23 Acute on chronic systolic (congestive) heart failure; L03.115 Cellulitis of right lower limb; L03.116 Cellulitis of left lower limb; I48.91 Unspecified atrial fibrillation; F41.9 Anxiety disorder, unspecified; F32.9 Major depressive disorder, single episode, unspecified; D75.81 Myelofibrosis; D45 Polycythemia vera; G47.30 Sleep apnea, unspecified; I27.20 Pulmonary hypertension, unspecified; G25.81 Restless legs syndrome; I42.0 Dilated cardiomyopathy; E11.40 Type 2 diabetes mellitus with diabetic neuropathy, unspecified; K21.9 Gastro-esophageal reflux disease without esophagitis; E78.00 Pure hypercholesterolemia, unspecified; D46.9 Myelodysplastic syndrome, unspecified; I36.1 Nonrheumatic tricuspid (valve) insufficiency; R23.8 Other skin changes; Z87.891 Personal history of nicotine dependence; Z86.14 Personal history of Methicillin resistant Staphylococcus aureus infection; Z86.73 Personal history of transient ischemic attack (TIA), and cerebral infarction without residual deficits; Z79.01 Long term (current) use of anticoagulants
CPT/HCPCS: 80048; 80053; 82948; 85025; 97110 GO; 97530 GP; A6214; J1815

== ENCOUNTER 2018-01-04 21:51 | Inpatient (IN) | payer OTHER, BC ==
[~2018-01-04] VITALS: Ht 193 cm; Wt 98.5 kg
[~2018-01-04 21:51] MED LIST changes: +FUROSEMIDE20 MG PO; +MIRALAX17 GM PO
[2018-01-04 23:28] LABS: APPEARANCE CLOUDY ((CLEAR)); BILIRUBIN NEGATIVE; BLOOD MODERATE; COLOR YELLOW ((YELLOW)); GLUCOSE (STRIP) NEGATIVE; KETONES NEGATIVE; LEUKOCYTES LARGE; NITRITE POSITIVE; PROTEIN (STRIP) 100; SPECIFIC GRAVITY 1.017 (1.000-1.030); UROBILINOGEN 0.2 MG/DL (0.2-1.0)
[2018-01-04 23:39] LABS: CARBON DIOXIDE (BICARBONATE) 22.2 MEQ/L (20-31)
[2018-01-04 23:40] LABS: INTER. NORMALIZED RATIO 2.2
[2018-01-04 23:42] LABS: HEMATOCRIT 39.7 % (38.0-50.0); HEMOGLOBIN 11.6 G/DL (12.5-16.6); MCHC 29.2 G/DL (30.0-36.0); MCV 68.4 FL (86-99); NRBC (%) 0.2 /100 WBC (0-0); PLATELET COUNT 211 K/uL (156-360); RBC DIS.WIDTH-CV 23.5 % (11.8-14.6); RBC DIS.WIDTH-SD 52.9 % (39-53); WHITE BLOOD COUNT 26.3 K/uL (4.1-10.2)
[2018-01-04 23:43] LABS: PTT 42.6 SEC (25-37)
[2018-01-04 23:46] LABS: ALBUMIN 3.5 g/dL (3.2-4.8)
[2018-01-04 23:47] LABS: CHLORIDE 101 mEq/L (99-109); POTASSIUM 4.6 mEq/L (3.7-5.4); SODIUM 131 mEq/L (136-147)
[2018-01-04 23:49] LABS: GLUCOSE 123 mg/dL (70-99); TOTAL PROTEIN 6.3 g/dL (6.4-8.3)
[2018-01-04 23:51] LABS: TOTAL BILIRUBIN 2.4 mg/dL (0.0-1.0)
[2018-01-04 23:52] LABS: ALKALINE PHOSPHATASE 319 IU/L (3-129)
[2018-01-04 23:53] LABS: CREATININE 0.8 mg/dL (0.6-1.3); GFR ESTIMATE (CALCULATED) > 59 mL/min/ (58.99-99999)
[2018-01-04 23:54] LABS: AST (GOT) 36 IU/L (2-34); UREA NITROGEN (BUN) 37 mg/dL (9-23)
[2018-01-04 23:55] LABS: ALT (GPT) 18 IU/L (3-49)
[2018-01-04 23:56] LABS: CREATINE KINASE 150 IU/L (1-294); LIPASE 14 U/L (1.0-51.0)
[2018-01-04 23:58] LABS: BACTERIA 3+ /HPF; EPITHELIAL CELLS RARE /HPF; MUCUS NONE SEEN /LPF; RED BLOOD CELLS 15-20 /HPF (0-5); UCUL ADDED? YES; WHITE BLOOD CELLS TNTC /HPF (0-5)
[2018-01-05] LABS: TROP-I INTERPRETATION NEGATIVE; TROPONIN-I < 0.01 ng/mL (0.0-0.30)
[2018-01-05 04:04] LABS: COMMENTS - BLOOD GASES C+; MODE RA; SITE LR; TOTAL RESP RATE 16 resp/min
[2018-01-05 04:05] LABS: BASE EXCESS -2.8 mEq/L (-3 to +3); BICARBONATE 19.7 mEq/L (22-26); CARBOXY HGB 3.1 % (0-5); O2 SATURATION (CALCULATED) 97.1 % (95-99); PCO2 27 mm Hg (35-45); PO2 69 mm Hg (80-100); pH 7.47 (7.35-7.45)
[2018-01-05 04:45] VITALS: BP 94/47
[2018-01-05] MEDS ORDERED: EMERGEN-C 500500 MG PO (05:40)
[2018-01-05] MEDS ORDERED: NOVAFERRUM 5050 MG PO (05:43)
[2018-01-05] MEDS ORDERED: MEN 50 PLUS MU1 EACH PO (05:45)
[2018-01-05 07:45] VITALS: BP 102/68
[2018-01-05 09:37] LABS: HEMATOCRIT 40.6 % (38.0-50.0); HEMOGLOBIN 11.8 G/DL (12.5-16.6); MCH 20.2 PG (29.0-34.0); MCHC 29.1 G/DL (30.0-36.0); MCV 69.6 FL (86-99); NRBC (%) 0.1 /100 WBC (0-0); PLATELET COUNT 211 K/uL (156-360); RBC DIS.WIDTH-CV 23.9 % (11.8-14.6); RBC DIS.WIDTH-SD 55.1 % (39-53); RED BLOOD COUNT 5.83 M/uL (4.00-5.50); WHITE BLOOD COUNT 27.3 K/uL (4.1-10.2)
[2018-01-05 09:58] LABS: ALBUMIN 3.3 G/DL (3.2-4.8); ALKALINE PHOSPHATASE 270 IU/L (3-129); ALT (GPT) 17 IU/L (3-49); AST (GOT) 37 IU/L (2-34); CHLORIDE 108 MEQ/L (99-109); CREATININE 0.6 MG/DL (0.6-1.3); GFR ESTIMATE (CALCULATED) > 59 mL/min/ (58.99-99999); POTASSIUM 4.1 MEQ/L (3.7-5.4); SODIUM 137 MEQ/L (136-147); TOTAL BILIRUBIN 2.4 MG/DL (0.0-1.0); TOTAL PROTEIN 5.5 G/DL (6.4-8.3); UREA NITROGEN (BUN) 33 mg/dL (9-23)
[2018-01-05 09:59] LABS: GLUCOSE 68 mg/dL (70-99)
[2018-01-05 12:00] VITALS: BP 110/74
[2018-01-05] MEDS ORDERED: HUMULIN N100 UNIT/2 SC (18:33)
[2018-01-05 19:29] VITALS: BP 111/72
[2018-01-05 23:55] VITALS: BP 103/64
[2018-01-06 04:20] VITALS: BP 103/69
[2018-01-06 07:09] VITALS: BP 92/49
[2018-01-06 07:46] LABS: HEMATOCRIT 40.8 % (38.0-50.0); HEMOGLOBIN 11.8 G/DL (12.5-16.6); MCH 20.1 PG (29.0-34.0); MCHC 28.9 G/DL (30.0-36.0); MCV 69.6 FL (86-99); NRBC (%) 0.2 /100 WBC (0-0); PLATELET COUNT 212 K/uL (156-360); RBC DIS.WIDTH-CV 24.4 % (11.8-14.6); RBC DIS.WIDTH-SD 56.2 % (39-53); RED BLOOD COUNT 5.86 M/uL (4.00-5.50); WHITE BLOOD COUNT 32.1 K/uL (4.1-10.2)
[2018-01-06 07:53] LABS: CHLORIDE 105 MEQ/L (99-109); CREATININE 0.7 MG/DL (0.6-1.3); GFR ESTIMATE (CALCULATED) > 59 mL/min/ (58.99-99999); POTASSIUM 4.2 MEQ/L (3.7-5.4); SODIUM 135 MEQ/L (136-147); UREA NITROGEN (BUN) 30 mg/dL (9-23)
[2018-01-06 07:57] LABS: GLUCOSE 94 mg/dL (70-99)
[2018-01-06 08:00] LABS: VANCOMYCIN, TROUGH 12.9 MCG/ML (10-20)
[2018-01-06 12:11] VITALS: BP 112/74
[2018-01-06 15:30] VITALS: BP 115/68
[2018-01-06 19:31] VITALS: BP 140/60
[2018-01-06 22:54] VITALS: BP 121/60
[2018-01-07 03:40] VITALS: BP 118/62
[2018-01-07 06:15] LABS: BASOPHIL (%) 1.6 % (0-1); BASOPHIL COUNT 0.5 K/uL (0-0.1); EOSINOPHIL (%) 0.5 % (0-5); EOSINOPHIL COUNT 0.2 K/uL (0-0.3); HEMATOCRIT 41.8 % (38.0-50.0); HEMOGLOBIN 11.9 G/DL (12.5-16.6); IMMATURE GRANULOCYTE (%) 3.4 % (0.0-0.7); LYMPHOCYTE (%) 2.4 % (15-42); LYMPHOCYTE COUNT 0.7 K/uL (1.0-2.8); MCH 19.9 PG (29.0-34.0); MCHC 28.5 G/DL (30.0-36.0); MCV 69.9 FL (86-99); MONOCYTE (%) 5.4 % (3-12); MONOCYTE COUNT 1.6 K/uL (0-0.8); NEUTROPHIL (%) 86.7 % (45-76); NEUTROPHIL COUNT 25.9 K/uL (1.8-6.4); NRBC (%) 0.2 /100 WBC (0-0); PLATELET COUNT 207 K/uL (156-360); RBC DIS.WIDTH-CV 24.7 % (11.8-14.6); RBC DIS.WIDTH-SD 56.6 % (39-53); RED BLOOD COUNT 5.98 M/uL (4.00-5.50); WHITE BLOOD COUNT 29.9 K/uL (4.1-10.2)
[2018-01-07 09:00] VITALS: BP 85/45
[2018-01-07 12:00] VITALS: BP 103/61
[2018-01-07 17:00] VITALS: BP 100/60
[2018-01-07 21:00] VITALS: BP 103/66
[2018-01-08] VITALS: BP 98/52
[2018-01-08 04:00] VITALS: BP 107/72
[2018-01-08 08:15] VITALS: BP 114/64
[2018-01-08 12:02] VITALS: BP 110/58
[2018-01-08 15:58] VITALS: BP 98/60
[2018-01-08 21:00] VITALS: BP 105/59
[2018-01-09] VITALS (8 sets, daily range): BP systolic 90–105; BP diastolic 59–71
[2018-01-09 05:58] LABS: BASOPHIL (%) 2.1 % (0-1); BASOPHIL COUNT 0.4 K/uL (0-0.1); EOSINOPHIL (%) 2.2 % (0-5); EOSINOPHIL COUNT 0.4 K/uL (0-0.3); HEMATOCRIT 41.9 % (38.0-50.0); HEMOGLOBIN 12.4 G/DL (12.5-16.6); IMMATURE GRANULOCYTE (%) 3.3 % (0.0-0.7); LYMPHOCYTE (%) 4.3 % (15-42); LYMPHOCYTE COUNT 0.8 K/uL (1.0-2.8); MCH 20.7 PG (29.0-34.0); MCHC 29.6 G/DL (30.0-36.0); MCV 70.1 FL (86-99); MONOCYTE (%) 3.1 % (3-12); MONOCYTE COUNT 0.6 K/uL (0-0.8); NRBC (%) 0.3 /100 WBC (0-0); PLATELET COUNT 197 K/uL (156-360); RBC DIS.WIDTH-CV 24.9 % (11.8-14.6); RED BLOOD COUNT 5.98 M/uL (4.00-5.50); WHITE BLOOD COUNT 18.8 K/uL (4.1-10.2)
[2018-01-09 06:13] LABS: CHLORIDE 106 MEQ/L (99-109); CREATININE 0.5 MG/DL (0.6-1.3); GFR ESTIMATE (CALCULATED) > 59 mL/min/ (58.99-99999); GLUCOSE 86 mg/dL (70-99); POTASSIUM 4.4 MEQ/L (3.7-5.4); SODIUM 139 MEQ/L (136-147); UREA NITROGEN (BUN) 21 mg/dL (9-23)
[2018-01-09 09:53] LABS: ALBUMIN 3.4 G/DL (3.2-4.8); ALKALINE PHOSPHATASE 284 IU/L (3-129); ALT (GPT) 26 IU/L (3-49); AST (GOT) 33 IU/L (2-34); DIRECT BILIRUBIN 0.7 mg/dL (0.0-0.3); TOTAL PROTEIN 5.9 G/DL (6.4-8.3)
[2018-01-09 09:54] LABS: TOTAL BILIRUBIN 1.6 MG/DL (0.0-1.0)
[2018-01-10 04:59] VITALS: BP 120/68
[2018-01-10 08:03] VITALS: BP 132/62
[2018-01-10 09:45] LABS: HEMOGLOBIN 12.8 G/DL (12.5-16.6); MCH 20.4 PG (29.0-34.0); MCHC 29.1 G/DL (30.0-36.0); MCV 70.3 FL (86-99); NRBC (%) 0.1 /100 WBC (0-0); PLATELET COUNT 236 K/uL (156-360); RBC DIS.WIDTH-CV 24.8 % (11.8-14.6); RBC DIS.WIDTH-SD 58.2 % (39-53); RED BLOOD COUNT 6.26 M/uL (4.00-5.50); WHITE BLOOD COUNT 21.4 K/uL (4.1-10.2)
[2018-01-10] MEDS ORDERED: DILTIAZEM 24HR120 MG PO (10:57)
[2018-01-10] MEDS ORDERED: INVANZ1 GM IM (10:57)
[2018-01-10] MEDS ORDERED: XARELTO20 MG PO (10:57)
[2018-01-10 11:51] VITALS: BP 136/60
== END 2018-01-10 14:25 | DRG 871 ==
LOC: EME → EDBD 21:51 → EDOF 01-05 03:22 → 4EAST 01-05 03:22 → ENRESERV 01-05 03:30 → 4EAST 01-05 04:50 → ENRESERV 01-09 14:59 → 3EAST 01-09 16:53
PROVIDERS: Emergency Medicine; Hospitalist; Internal Medicine
DX: A41.9 Sepsis, unspecified organism (principal); N30.00 Acute cystitis without hematuria; B96.20 Unspecified Escherichia coli [E. coli] as the cause of diseases classified elsewhere; G93.41 Metabolic encephalopathy; I48.2 Chronic atrial fibrillation; E87.1 Hypo-osmolality and hyponatremia; I48.0 Paroxysmal atrial fibrillation; I11.0 Hypertensive heart disease with heart failure; I50.22 Chronic systolic (congestive) heart failure; D75.81 Myelofibrosis; I42.0 Dilated cardiomyopathy; I27.20 Pulmonary hypertension, unspecified; R16.1 Splenomegaly, not elsewhere classified; E72.20 Disorder of urea cycle metabolism, unspecified; F05 Delirium due to known physiological condition; L03.115 Cellulitis of right lower limb; L03.116 Cellulitis of left lower limb; K72.90 Hepatic failure, unspecified without coma; R26.2 Difficulty in walking, not elsewhere classified; E11.9 Type 2 diabetes mellitus without complications; D50.0 Iron deficiency anemia secondary to blood loss (chronic); D45 Polycythemia vera; C94.6 Myelodysplastic disease, not elsewhere classified; G47.30 Sleep apnea, unspecified; F03.90 Unspecified dementia, unspecified severity, without behavioral disturbance, psychotic disturbance, mood disturbance, and anxiety; G25.81 Restless legs syndrome; I87.2 Venous insufficiency (chronic) (peripheral); K21.9 Gastro-esophageal reflux disease without esophagitis; K64.9 Unspecified hemorrhoids; F41.9 Anxiety disorder, unspecified; F32.9 Major depressive disorder, single episode, unspecified; Z16.12 Extended spectrum beta lactamase (ESBL) resistance; Z86.73 Personal history of transient ischemic attack (TIA), and cerebral infarction without residual deficits; Z87.442 Personal history of urinary calculi; Z87.891 Personal history of nicotine dependence; Z79.01 Long term (current) use of anticoagulants; Z91.81 History of falling
CPT/HCPCS: 36600; 70450; 71045; 74177; 76705; 80048; 80053; 80076; 80202; 81003; 82140; 82550; 82803; 82948; 83605; 83690; 84484; 85025; 85027; 85610; 85730; 87040; 87077; 87086; 87186; 93971; 94799; 99281; 99285; A6214; J1160; J1335; J1815; J2543; J3370; J7030; J7050